=== PATIENT | male | born 1950 | race Caucasian/White ===

== ENCOUNTER 2023-03-16 12:33 | Emergency (ER) | payer OTHER, SELFPAY ==
[2023-03-16 12:43] VITALS: BP 128/77; PULSE 80; RESP 18; TEMP 36.2; O2SAT 97; BMI 33.5
--- NOTE | 2023-03-16 13:16 | CRLHL7_ITS ---
For Patients: As a result of the Cures Act, medical imaging exams and procedure reports are released immediately into your electronic medical record. You may view this report before your referring provider. If you have questions, please contact your health care provider. INDICATION: Fell off chair and hurt elbow COMPARISON: None. TECHNIQUE: Three views right elbow. FINDINGS: BONES: No fracture. Distal triceps tendon calcific tendinitis. Normal mineralization. No focal bone lesion. JOINT: Normal elbow joint alignment. No elbow joint effusion. Joint spaces: Mild osteoarthritis. Soft Tissues: Posterior soft tissue swelling. No foreign body. IMPRESSION: Posterior soft tissue swelling in the right elbow. No fracture or dislocation. Dictated by Torri Rutherford MD @ 03/16/2023 3:05:29 PM (Electronically Signed)
--- NOTE | 2023-03-16 13:16 | ED_ITS ---
HPI - General Adult General Chief complaint: Extremity Pain/Injury, Upper Stated complaint: Fell on arm Time Seen by Provider: 03/16/23 13:02 History of Present Illness HPI narrative: This 72-year-old male comes in with injury to his right elbow that occurred yesterday. He states that he fell off of his chair onto his right elbow. He did not hit his head or have loss of consciousness. He does not report any other injury. He does have some swelling over the extensor aspect of the right elbow joint but does have full range of motion. Related Data Home Medications Medication Instructions Recorded Confirmed aspirin 325 mg capsule 325 mg PO BID 03/16/23 03/16/23 aspirin-acetaminophen PO 03/16/23 Allergies Allergy/AdvReac Type Severity Reaction Status Date / Time No Known Drug Allergies Allergy Verified 03/16/23 12:49 Review of Systems Status of ROS: Reports: 10 or more systems reviewed and unremarkable except as noted in History and below Narrative: Constitutional: No fevers, no weight gain or loss. Eyes: No discharge. No vision changes. HENT: No congestion, no sore throat, no ear pain. Cardiovascular: No chest pain, no palpitations. Respiratory: No shortness of breath, no wheezes, no cough. Gastrointestinal: No abdominal pain, no vomiting, no diarrhea. Genitourinary: No dysuria, no hematuria. Musculoskeletal: Right elbow injury as described above. Skin: No rashes, no pruritis. Neurological: No dizziness, weakness, sensory change, speech change. Endo/Heme/Allergies: No bruising or bleeding. No polydipsia. Pysch: no suicidality, no anxiety, no insomnia. All other systems reviewed and are negative. Exam Narrative: Exam Narrative: Constitutional: Well-developed, well-nourished, no acute distress. HEENT: Normocephalic, atraumatic. Neck: Normal range of motion. Nontender. Supple. Heart: Regular. No murmurs. Normal rate. Intact distal pulses. Lungs: Clear to auscultation. No chest discomfort. No wheezes, rhonchi, or rales. Abdomen: Normal bowel sounds. Nontender. No rebound tenderness. Genitalia: Deferred. Back: No midline tenderness. Normal range of motion. Extremities: Right elbow has mild swelling over the olecranon process. Range of motion is intact. No external sign of injury other than mild swelling. No pain when palpating over the shoulder or wrist of the right upper extremity. Skin: Intact. No rash. Warm. No erythema or pallor. Neurologic: No altered sensation. No weakness. Alert and oriented. Psychiatric: No suicidality. No anxiety or depression. No insomnia. Nursing notes and vitals signs are reviewed. Const: Vital Signs, click to edit/add: Vital Signs - 24 hr 03/16/23 12:43 Temperature 97.1 F L Pulse Rate [Right Pulse Oximeter] 80 Respiratory Rate 18 Blood Pressure [Le ft Upper Arm] 128/77 Pulse Oximetry 97 Oxygen Delivery Me thod Room Air Course Vital Signs Vital signs: Initial Vital Signs Temperature 97.1 F L 03/16/23 12:43 Temperature Source Temporal Artery Scan 03/16/23 12:43 Pulse Rate 80 03/16/23 12:43 Respiratory Rate 18 03/16/23 12:43 Blood Pressure 128/77 03/16/23 12:43 Blood Pressure Mean 94 03/16/23 12:43 Blood Pressure Position Sitting 03/16/23 12:43 Pulse Oximetry 97 03/16/23 12:43 Oxygen Delivery Method Room Air 03/16/23 12:43 Vital Signs Temperature 97.1 F L 03/16/23 12:43 Pulse Rate 80 03/16/23 12:43 Respiratory Rate 18 03/16/23 12:43 Blood Pressure 128/77 03/16/23 12:43 Pulse Oximetry 97 03/16/23 12:43 Oxygen Delivery Method Room Air 03/16/23 12:43 Temperature 97.1 F L 03/16/23 12:43 Pulse Rate 80 03/16/23 12:43 Respiratory Rate 18 03/16/23 12:43 Blood Pressure 128/77 03/16/23 12:43 Pulse Oximetry 97 03/16/23 12:43 Oxygen Delivery Method Room Air 03/16/23 12:43 Medical Decision Making MDM Narrative Medical decision making narrative: This patient comes in for evaluation of an injury to his right elbow that occurred yesterday. He does have full range of motion but describe some discomfort at the elbow joint wear also there is noted some mild swelling over the posterior olecranon. X-ray imaging returns without any evidence of fracture or malalignment. This was reassuring to the patient. He did receive an Dion wrap. He is encouraged use [id number] medicines also as needed and directed and increase activity as tolerated. Imaging Data XR R Elbow: Radiologist's impression: Posterior soft tissue swelling in the right elbow. No fracture or dislocation. Discharge Plan Discharge Clinical Impression: Contusion of elbow, right Patient Disposition: Home, Self-Care Condition: Stable Additional Instructions: Use [id number] medicines as needed and directed. Increase activity as tolerated. Follow up with MD return if worsening. Prescriptions: No Action aspirin-acetaminophen PO aspirin 325 mg capsule 325 mg PO BID Follow Up/Referrals: Rex Marquez MD [Primary Care Provider] - Stand Alone Forms: [employer] Info Instructions
== END 2023-03-16 15:31 | disposition home or self-care (01) ==
PROVIDERS: Emergency Provider Emergency Medicine Emergency Medical Services; PCP Family Medicine
DX: S50.01XA Contusion of right elbow, initial encounter (principal)
CPT/HCPCS: 73080; 99283; 99284